=== PATIENT | female | born 1950 | race Caucasian/White ===

== ENCOUNTER 2020-04-24 06:39 | Inpatient (IN) ==
--- NOTE | 2020-04-10 11:13 | PAT Medication Instructions ---
Medication Instructions Date of Service April 10, 2020 Home Medications alendronate 70 mg PO WK atenolol 25 mg PO HS buspirone 5 mg PO BID PRN furosemide 20 mg PO DAILY PRN glucosamine HCl 1,500 mg PO DAILY meclizine 25 mg PO DAILY PRN multivitamin 1 tab PO DAILY oxybutynin chloride 5 mg PO BID rosuvastatin 10 mg PO HS Continue as directed alendronate 70 mg PO WK STOP taking 2 weeks before surgery If surgery is within 2 weeks, stop taking as soon as possible. glucosamine HCl 1,500 mg PO DAILY DO NOT take the morning of surgery furosemide 20 mg PO DAILY PRN multivitamin 1 tab PO DAILY oxybutynin chloride 5 mg PO BID Take morning of surgery With a small sip of water, OTHERWISE NOTHING TO EAT OR DRINK AFTER MIDNIGHT: buspirone 5 mg PO BID PRN (if needed) meclizine 25 mg PO DAILY PRN (if needed) Take evening before surgery atenolol 25 mg PO HS buspirone 5 mg PO BID PRN (if needed) furosemide 20 mg PO DAILY PRN (if needed) meclizine 25 mg PO DAILY PRN (if needed) oxybutynin chloride 5 mg PO BID rosuvastatin 10 mg PO HS Other Notes If you have any questions please call us at [phone] or [phone] or [phone] or [phone]
--- NOTE | 2020-04-10 11:32 | Anesthesiology Consultation ---
Date of Service April 10, 2020 Assessment & Plan (1) Encounter for pre-operative examination: COVID Status: As of 04/10 assessment, patient denies travel to endemic area, known exposure/sick contacts, or symptoms of COVID19. Patient made aware to social distance, wear a mask in public and avoid travel for 14 days prior to surgery. Preoperative COVID19 testing to be completed prior to surgery on 04/17 at [facility]. Chart Review Chart Review: Acceptable Risk for Surgery and Patient seen in Pre Admission Testing Teaching & Discussion Instructed NPO after midnight before surgery, except medications with 15 cc of water. Medication instructions provided according to the PAT guidelines. History Surgery Operation Date: 04/24/20 10:30 Proposed Procedures p Right Total Knee Arthroplasty - Niles Llamas MD Height/Weight Height: 5 ft 2 in Weight: 77.7 kg Allergies Allergy/AdvReac Type Severity Reaction Status Date / Time adhesive tape Allergy Mild Rash Verified 04/09/20 11:33 Medications Home Medications Medication Instructions Recorded Confirmed Last Taken alendronate 70 mg PO WK 04/09/20 04/09/20 Unknown atenolol 25 mg PO HS 04/09/20 04/09/20 Unknown buspirone 5 mg PO BID PRN 04/09/20 04/09/20 Unknown furosemide 20 mg PO DAILY PRN 04/09/20 04/09/20 Unknown glucosamine HCl 1,500 mg PO DAILY 04/09/20 04/09/20 Unknown meclizine 25 mg PO DAILY PRN 04/09/20 04/09/20 Unknown multivitamin 1 tab PO DAILY 04/09/20 04/09/20 Unknown oxybutynin chloride 5 mg PO BID 04/09/20 04/09/20 Unknown rosuvastatin 10 mg PO HS 04/09/20 04/09/20 Unknown Past Medical History Medical History Anxiety Hearing deficit RT Hx of migraines Hyperlipidemia Hypertension Muscle cramps at night Osteoarthritis Overactive bladder Exercise / Class Metabolic Activity III < 4 Walking/Shop/Light housework (Denies any chest pain, some mild BARRERA with 1 FOS, uses stair lift at home.) Past Family History Family History (Updated 04/09/20 @ 11:46 by Devora Lawton RN) Other No significant family history Past Surgical History Surgical History Family history of reaction to anesthesia MANY FAMILY MEMBERS N/V History of arthroscopy RT KNEE History of breast biopsy BENIGN History of laparoscopy "TUBAL" History of tonsillectomy and adenoidectomy History of tooth extraction Nausea and vomiting after administration of anesthetic agent Past Anesthesia History No Hx of Anesthesia Complications (other than PONV) and No Family Hx of Anesthesia Complications (other than PONV) History of PONV History of PONV and Hx of Motion Sickness (2/2 vertigo) Social History Smoking Status: Never smoker Do You Dip or Chew Tobacco: No Hx Alcohol Use: Yes alcohol intake frequency: holidays/special occasions only Hx Substance Use: No substance use type: does not use Review of Systems Pt denies any recent chest pain, shortness of breath, palpitations, cough, fever or URI. Physical Exam Vital Signs BP: 114/72 P: 70bpm SPO2: 96% RA T: R: 16 ENMT Mouth: no dental restorations, no chipped teeth and no loose teeth Thyromental Distance: > or= 3.5 Finger Breadths (3.5) Mallampati Class: I Neck normal visual inspection; neck extension not limited Respiratory normal respiratory effort Auscultation: lungs clear to auscultation bilaterally Cardiovascular Rate/Rhythm: regular rate and regular rhythm Heart Sounds: no murmur Vessels: no carotid bruit Extremities: + edema (trace nonpitting B/L, pt states this is baseline) Testing Laboratory Results 04/10/20 11:55 04/10/20 11:55 PT 10.9 Seconds (9.0-12.0) 04/10/20 11:55 INR 1.0 (0.9-1.1) 04/10/20 11:55 APTT 26.7 Seconds (21.0-31.0) 04/10/20 11:55 Hemoglobin A1c 5.4 % (4.5-5.6) 04/10/20 11:55 Urine Color Yellow 04/10/20 11:55 Urine Appearance Clear (Clear) 04/10/20 11:55 Urine pH 7.0 (4.5-7.5) 04/10/20 11:55 Ur Specific [place] 1.009 (1.000-1.030) 04/10/20 11:55 Urine Protein Negative (Negative) 04/10/20 11:55 Urine Glucose (UA) Negative (Negative) 04/10/20 11:55 Urine Ketones Negative (Negative) 04/10/20 11:55 Urine Nitrite Negative (Negative) 04/10/20 11:55 Ur Leukocyte Esterase Negative (Negative) 04/10/20 11:55 Blood Type O Positive 04/10/20 11:55 Antibody Screen NEGATIVE 04/10/20 11:55 Electrocardiogram Date: 04/10/20 Findings: + NSR @ (68bpm) Left axis deviation. Chest X-Ray Date: 04/10/20 Findings: + NAD
--- NOTE | 2020-04-10 12:23 | XRay Report ---
XR chest Pre-admission PA/Lat CLINICAL HISTORY: Preoperative chest COMPARISON STUDY: No previous studies for comparison. FINDINGS: The cardiac and mediastinal contours are normal. There is no evidence of focal pulmonary co nsolidation. There is no evidence of failure. No pleural effusions are visualized.[ IMPRESSION: No active disease in the chest. ACT 112: Negative or not required by law. Electronically signed by: Kunal Dao M.D. 04/10/2020 12:22 PM
[2020-04-10 13:00] LABS: Basophils # (auto) 0.06 K/uL (0-0.2); Eosinophils # (auto) 0.05 K/uL (0-0.5); Eosinophils % (auto) 0.8 %; Hematocrit (blood only) 42.4 % (37-47); Hemoglobin 13.9 g/dL (12.0-16.0); Immature Granulocytes # (auto) 0.01 K/uL (0.00-0.02); Immature Granulocytes % (auto) 0.2 %; Lymphocytes # (auto) 1.58 K/uL (1.2-3.4); Lymphocytes % (auto) 26.1 %; Mean Corpuscular Hemoglobin 32.6 pg (25-34); Mean Corpuscular Hgb Conc 32.8 g/dL (32-36); Mean Corpuscular Volume 99.3 fL (80-100); Mean Platelet Volume 12.2 fL (7.4-10.4); Monocytes # (auto) 0.45 K/uL (0.11-0.59); Monocytes % (auto) 7.4 %; Neutrophils # (auto) 3.91 K/uL (1.4-6.5); Neutrophils % (auto) 64.5 %; Platelet Count 207 K/uL (130-400); RDW Coefficient of Variation 12.6 % (11.5-14.5); RDW Standard Deviation 45.6 fL (36.4-46.3); Red Blood Count 4.27 M/uL (4.2-5.4); White Blood Count 6.06 K/uL (4.8-10.8)
[2020-04-10 13:08] LABS: Appearance Urine Clear (Clear); Bilirubin Urine Negative (Negative); Blood Urine Negative (Negative); Color Urine Yellow; Glucose Urine UA Negative (Negative); Ketones Urine Negative (Negative); Leukocyte Esterase Urine Negative (Negative); Nitrite Urine Negative (Negative); Protein Urine Negative (Negative); Specific Gravity Urine 1.009 (1.000-1.030); Urobilinogen Urine Negative (Negative)
[2020-04-10 13:09] LABS: Estimated Average Glucose 108 mg/dl; Hemoglobin A1C 5.4 % (4.5-5.6)
[2020-04-10 13:33] LABS: Partial Thromboplastin Time 26.7 Seconds (21.0-31.0); Prothrombin Time 10.9 Seconds (9.0-12.0)
[2020-04-10 13:41] LABS: Albumin Level 4.4 gm/dl (3.4-5.0); BUN Creatinine Ratio 24.5 (10-20); Creatinine Clr Calc Pharmacy 79.1 ml/min; Est GFR (African American) 104.6; Est GFR (Non-African American) 90.2; Potassium 4.5 mmol/L (3.5-5.1)
--- NOTE | 2020-04-10 14:51 | Electrocardiogram Report ---
Test Reason : Blood Pressure : / mmHG Vent. Rate : 068 BPM Atrial Rate : 068 BPM P-R Int : 188 ms QRS Dur : 084 ms QT Int : 400 ms P-R-T Axes : 070 -30 -04 degrees QTc Int : 425 ms Normal sinus rhythm Left axis deviation Abnormal ECG No previous ECGs available Confirmed by Cooper Soriano ([id number]) on 04/10/2020 2:50:27 PM Referred By: Niles Llamas Confirmed By:Cooper Soriano
--- NOTE | 2020-04-23 20:29 | History and Physical Report ---
DATE OF ADMISSION: 04/24/2020 CHIEF COMPLAINT: Chronic right knee pain. HISTORY OF PRESENT ILLNESS: This is a 70-year-old female patient of Dr. Llamas'grace complaining of chronic right knee pain, longstanding, now progressively getting worse. The patient has failed conservative treatment including intra-articular injections, topical creams, anti-inflammatories and the use of a home exercise program. The patient has increased pain with weightbearing activities and her pain does interfere with her activities of daily living. The patient has been diagnosed with end-stage osteoarthritis per clinical and radiographic exams in the right knee and wishes to proceed with right total knee arthroplasty. PAST MEDICAL HISTORY: Anxiety, osteoarthritis. SOCIAL HISTORY: Nonsmoker, nondrinker. FAMILY HISTORY: Noncontributory. REVIEW OF SYSTEMS: Chronic right knee pain and instability. Otherwise, denies any shortness of breath, chest pain, nausea, vomiting. MEDICATIONS: 1. Alendronate 70 mg as directed. 2. Amlodipine 10 mg daily. 3. Atenolol 25 mg daily. 4. buspirone 5 mg twice daily as needed. 5. Furosemide 20 mg daily as needed. 6. Meclizine 25 mg 3 times a day as needed. 7. Multivitamin daily. 8. Oxybutynin 5 mg 3 times daily. 9. Rosuvastatin 10 mg daily. ALLERGIES: No known drug allergies. PHYSICAL EXAMINATION: GENERAL: Well-developed, well-nourished 70-year-old female in no acute distress. She is alert and oriented x3 and pleasant. HEENT: Normocephalic, atraumatic. Extraocular motions are intact. Pupils are equal and reactive to light. HEART: Regular rate and rhythm, no murmurs. LUNGS: Clear. ABDOMEN: Soft, nontender, bowel sounds present. EXTREMITIES: Right knee reveals joint line tenderness with a moderate effusion. She has pain and crepitation with passive range of motion. She has limited range of motion. Neurologically and neurovascularly, she is intact in her right lower extremity. DIAGNOSES: Right knee end-stage osteoarthritis, anxiety, osteoarthritis. PLAN: The patient was advised of her diagnosis. Indications, risks, benefits, postoperative course have all been reviewed. The patient wished to proceed with a right total knee arthroplasty. Necessary consent forms, preoperative testing and clearances will be obtained. STAR
[~2020-04-24 06:39] MED LIST: ACETAMINOPHEN 500 MG TAB PO SCH; BUPIVACAINE 0.25% 30 ML VIAL ONE; BUPIVACAINE 0.5 % 5 MG/1 ML PF 10ML VIAL ONE; CEFAZOLIN 1000MG 1,000 MG/7.5 ML SYR IV SCH; CeleBREX 200 MG CAP PO SCH; FAMOTIDINE 20 MG TAB PO SCH; GABAPENTIN 300 MG CAP PO SCH; LR 15ML/HR IV SCH; LR 500ML BOLUS, THEN 15ML/HR IV SCH; METOCLOPRAMIDE HCL 10 MG TABLET PO SCH; ROPIVACAINE 0.5% HCL/PF 150 MG, BUPIVACAINE 0.5% MPF 30 ML, EPINEPHrine 30MG/30ML (OR U... INSTIL SCH; TRANEXAMIC ACID 1,000 MG **IV Intra-op IV SCH; TRANEXAMIC ACID 1,000 MG **IV Pre-op IV SCH; dexAMETHasone 4 MG TAB PO SCH
--- NOTE | 2020-04-24 07:03 | History & Physical Bridge Note ---
Date of Service April 24, 2020 History & Physical Bridge Note I have examined the patient, reviewed the History & Physical and in the interval since the performance of the History & Physical I have noted the following changes of clinical significance: no changes noted
[2020-04-24] MEDS ORDERED: ORTHO JOINT ANESTHETIC ONE (07:43)
[2020-04-24] MEDS ORDERED: BACITRACIN INJ 50,000 UNIT VIAL ONE (07:43)
[2020-04-24] MEDS ORDERED: MIDAZOLAM HCL 1 MG/ML 2ML VIAL ONE ×2 (07:51→09:25)
[2020-04-24] MEDS ORDERED: LIDOCAINE HCL 2% 2 ML VIAL/AMP(20MG/ML) INFIL ONE (07:51)
[2020-04-24] MEDS ORDERED: PROPOFOL IV EMULSION 10 MG/ML 20 ML VIAL IV ONE ×2 (07:51→09:46)
[2020-04-24] MEDS ORDERED: ePHEDrine sulfate 50 MG/ML AMP IV PRN (08:27)
[2020-04-24] MEDS ORDERED: ONDANSETRON INJ 2 MG/ML 2 ML VIAL IV PRN ×2 (08:27→11:47)
[2020-04-24] MEDS ORDERED: fentaNYL citrate 100 MCG/2 ML VIAL IV PRN (08:27)
[2020-04-24] MEDS ORDERED: ATROPINE SULFATE 0.1 MG/ML 10ML SYR IV PRN (08:27)
[2020-04-24] MEDS ORDERED: ePHEDrine sulfate 50 MG/ML SYR ONE (09:07)
--- NOTE | 2020-04-24 10:17 | Operative Report ---
Post Operative Report Pre & Post Diagnosis Operation Date: 04/24/20 08:50 Pre-Op Diagnosis: RIGHT KNEE OSTEOARTHRITIS Post-Op Diagnosis: RIGHT KNEE OSTEOARTHRITIS I identified the patient and participated in the time-out.: Yes Procedure Operation Date: 04/24/20 08:50 Actual Procedures p Right Total Knee Arthroplasty(Right) - Niles Llamas MD Surgeon Niles Llamas MD Health Assessment And Treatment Teacher Carlos HALLMAN Estimated Blood Loss 10 Findings Consistent with Post-Op Diagnosis Specimens Bone cuts Drains 2 Hemovac Anesthesia Type MAC Spinal Regional Complications none Disposition Accompanied Patient To Recovery: No Disposition: Recovery Room Indications 70 female with progressive osteoarthritis of the right knee failed conservative management. Patient has medial compartment and patellofemoral osteoarthritis [id number] medial compartment on weightbearing films with a varus knee. Description of Procedure Patient taken to the operating room placed supine on the operating table and anesthetized under spinal MAC regional anesthesia. Exam under anesthesia demonstrated good range of motion varus knee no instability. A pneumatic tourniquet was placed about the moderately obese thigh of the right lower extremity. The right lower extremity was prepped and draped in usual fashion. Leg was elevated exsanguinated with an Esmarch bandage and the pneumatic was raised to 350 mm mercury. An anterior incision was made across the right knee. The skin was incised longitudinally subcutaneous flaps were elevated and an incision was made through the medial retinaculum extending up into the mid third of the quadriceps tendon and extended down to the medial tibial tubercle. Intra-articular findings demonstrated medial compartment and patellofemoral osteoarthritis grade 4 trochlear groove grade 4 medial compartment [id number] medial compartment varus knee.. The knee was exposed by excising the infrap atellar fat pad, excising the meniscal remnants and anterior cruciate ligament . Any inflamed synovial tissue was resected. The fat pad over the anterior femur was resected for placement of the component in that area. The lateral synovial bands were release. Appropriate releases were performed to balance ligaments. The femur was exposed. The drill hole was made into the intramedullary canal the guide jessica placed and the distal resection guide set at a 5 degree valgus cut standard distal femoral cut. The distal femoral cutting block was applied. The distal femoral cut was made with the oscillating saw. The sizing guide was utilized drill holes were placed in 3 degrees of external rotation to match the epicondylar axis. Sizing guide used and femur sized for a right 9 narrow CR persona femoral component. The size 9 4-in-1 cutting block was placed. The anterior and posterior chamfer cuts were made. The knee was extended and a subperiosteal peel lateral release was performed around the patella. The patella width was measured and width was reproduced using freehand cut technique. The 32 x 8.5 symmetrical millimeter symmetrical patella was used. 3 drill holes are made for the pegs. The tibia was exposed. The external tibial cutting guide was positioned and the proximal cut was made with the oscillating saw. All osteophytes were resected. The lamina refrigeration service technician was used to assess ligamentous balance and the ligaments were balanced in extension and flexion. The tibia was reexposed and measured for a size E tibial component. This was externally rotated in line with the tibial tubercle and the fixation pins were drilled. The proximal tibia was fashioned with the drill and punch. The size 9 femoral trial was inserted. The trial MC inserts were used. The 11 mm insert gave balanced ligaments through full range of motion. The patella tracked centrally. the trials were removed. The orthomix anesthetic cocktail was injected per protocol. The knee was then copiously irrigated with pulsatile lavage antibiotic solution with bacitracin. The final components were cemented with Simplex cement. The final components were 9 narrow CR persona [employer] right femoral component, E tibial baseplate, 11 mm MC polyethylene, 32 x 8.5 mm symmetrical patella. While the cement cured with the knee in full extension the Betadine soak was used per protocol. After the cement cured, the knee joint was copiously irrigated with antibiotic solution with bacitracin. 2 drains were brought out laterally and connected to a Hemovac. The quadriceps tendon and medial retinaculum were closed with interrupted [id number] #1 Vicryl sutures. The knee was taken through a full range of motion and repair was secure. The subcutaneous tissues were closed with 2-0 Vicryl sutures and skin was closed with sammie. Sterile dressings were applied and the patient tolerated the procedure well. Carlos HALLMAN my physician fitter's assistant, assisted in soft tissue retraction instrument management leg positioning the closure and will participate in the postoperative care of the patient. I attest to the content of the Intraoperative Record and any orders documented therein. Any exceptions are noted below.
[2020-04-24] MEDS ORDERED: MAGNESIUM HYDROXIDE SUSP 30 ML UDC PO PRN (11:47)
[2020-04-24] MEDS ORDERED: bisacodyL 10 MG SUPP PR PRN (11:47)
[2020-04-24] MEDS ORDERED: NALOXONE HCL 0.4 MG/1 ML VIAL/CARP IV PRN (11:47)
--- NOTE | 2020-04-24 12:17 | XRay Report ---
XR knee RT 1 or 2V routine CLINICAL HISTORY: Postoperative evaluation. COMPARISON: None FINDINGS: Alignment of the total right knee arthroplasty is anatomic. There is no periprosthetic fra cture. There is no unexpected radiopaque foreign body. Drains and skin sammie are present. IMPRESSION: Expected findings following total right knee arthroplasty. ACT 112: Negative or not required by law. Electronically signed by: Jorge Alaniz M.D. 04/24/2020 12:16 PM
[2020-04-24] MEDS: SODIUM CHLORIDE 0.9% 1000ML 1,000 ML IV SCH (13:14)
[2020-04-24] MEDS: ACETAMINOPHEN 500 MG TAB PO SCH ×2 (13:15→21:52)
--- NOTE | 2020-04-24 13:19 | Consultation ---
Date of Consultation April 24, 2020 Assessment & Plan (1) Status post total knee replacement, right: S/P R TKA POD #[address] Llamas EBL 10ml; hemovac 30ml pt tolerated procedure well pain/wound management per Ortho Activity and therapy as directed by Ortho Encourage incentive spirometry Monitor H&H, preop 13.9/42.4 (2) Hypertension: blood pressure controlled continue atenolol and amlodipine, with parameters (3) Hyperlipidemia: continue statin (4) Anxiety: continue buspar, prn DVT Prophlyaxis: SCD/TEDS, ASA BID per ortho Disposition: per primary Follow up: PCP Bambi Olguin PA-C upon discharge Pt was seen and examined in collaboration with Dr. Roy, please see addendum Starting 04/25/2020 pt will be under the care of Dr. Barahona Thank you for this consultation. We will follow the patient with you during their hospital stay. You [facility] via pager @ [phone]. Supervising Physician Co-Signing Physician Notes HISTORY: Record reviewed. Patient interviewed and examined. Care coordinated with Mikayla Mendes PA-C; please refer to her documentation for complete history. Briefly, 70 YO F with history of hypertension and other problems as noted. Right TKA performed today. Doing well postoperatively. No chest pain, cough, SOB, nausea, vomiting. Pain well-controlled. EXAM: General- no distress Lungs- clear to auscultation; no respiratory distress Cardiovascular- RRR; no murmur; no gallop; no JVD; no pretibial edema Abdomen- + bowel sounds, soft, nontender Extremities- no cyanosis; no calf tenderness; SCD's applied Neuro- alert, oriented Skin- warm & dry DATA: 04/10/20 11:55 04/10/20 11:55 ASSESSMENT AND PLAN: S/P TKA Doing well postoperatively. HYPERTENSION Hemodynamically stable. Continue atenolol and amlodipine. Please refer to LEXX Mendes's documentation for discussion of other issues. History of Present Illness Reason for Consultation: Post op medical management Attending Physician: Niles Llamas MD History of Present Illness This is a 70-year-old female who has significant past medical history of HTN, HLD, panic attack, vertigo who presents for elective right total knee arthroplasty by Dr. Llamas. We have been consulted for medical management. Postoperatively she is doing well and has no complaints. She ate all of her lunch. She denies any fever, chills, sweats, lightheadedness, dizziness, chest pain, shortness breath, cough, nausea, vomiting, abdominal pain. She has urinated without difficulty. Last BM was 2 days prior to procedure. The only medication she took prior to procedure was 5 mg of BuSpar. She did not take her amlodipine or atenolol. At baseline her hypertension is controlled with amlodipine and atenolol. She does take as needed BuSpar for anxiety. She also elicits occasional attacks of vertigo which she uses meclizine as needed. Allergies Allergy/AdvReac Type Severity Reaction Status Date / Time adhesive tape Allergy Mild Rash Verified 04/24/20 06:56 Home Medications Home Medications Medication Instructions Recorded Confirmed Type alendronate 70 mg PO WK 04/09/20 04/24/20 History atenolol 25 mg PO HS 04/09/20 04/24/20 History buspirone 5 mg PO BID PRN 04/09/20 04/24/20 History furosemide 20 mg PO DAILY PRN 04/09/20 04/24/20 History glucosamine HCl 1,500 mg PO DAILY 04/09/20 04/24/20 History meclizine 25 mg PO DAILY PRN 04/09/20 04/24/20 History multivitamin 1 tab PO DAILY 04/09/20 04/24/20 History oxybutynin chloride 5 mg PO BID 04/09/20 04/24/20 History rosuvastatin 10 mg PO HS 04/09/20 04/24/20 History amlodipine 10 mg PO DAILY 04/24/20 04/24/20 History Patient History Medical History Anxiety Hearing deficit RT Hx of migraines Hyperlipidemia Hypertension Muscle cramps at night Osteoarthritis Overactive bladder Surgical History Family history of reaction to anesthesia MANY FAMILY MEMBERS N/V History of arthroscopy RT KNEE History of breast biopsy BENIGN History of laparoscopy "TUBAL" History of tonsillectomy and adenoidectomy History of tooth extraction Nausea and vomiting after administration of anesthetic agent Family History Mother Breast cancer Father COPD (chronic obstructive pulmonary disease) Social History (Updated 04/24/20 @ 13:40 by Mikayla Mendes PA-C) Preferred Language: Gabonese Lifter/Driver Required: No Beliefs That Will Affect Care: None Current Living Situation: Spouse Feels Safe at Home: Yes Safety Concerns: Feels Safe At This Time Smoking Status: Never smoker Do You Dip or Chew Tobacco: No ; Second Hand Exposure: No ; Tobacco Cessation Education Requested by Patient: No Hx Alcohol Use: No Hx Substance Use: No Review of Systems Review of Systems: All systems reviewed & are unremarkable except as noted in HPI & below Physical Exam Physical Exam: Constitutional: WD/WN, vitals as above, NAD, sitting up in bed, pleasant, conversing easily Head: Normocephalic, Atraumatic Eyes: PERRL, conjunctivae normal, anicteric sclerae ENMT: external ear and nose normal, oropharynx normal Neck: trachea midline, no thyromegaly normal visual inspection Respiratory: normal respiratory effort, lungs clear to auscultation, no wheeze, rales, rhonchi. Normal insp/exp effort, no accessory muscle use Cardiovascular: RRR, no murmur, no edema Vessels: no JVD or carotid bruit Chest: normal inspection of chest Abdomen: normal bowel sounds, soft, nontender, no hepatosplenomegaly Musculoskeletal: no cyanosis or clubbing, extremities motor strength 5/5, RTKA dressing CDI, hemovac in place, NVI distally Skin: no rashes, warm and dry normal turgor Neurologic: PERRL, EOMI, accommodation nl, no face palsy, no dysarthria CN's II-XI intact bilaterally and moves all extremities Psychiatric: A+Ox3, euthymic affect Lymphatic: no cervical or axillary lymphadenopathy : deferred Results & Data ([facility]) Vital Signs (Past 12 Hours) Vital Signs Temp Pulse Pulse Pulse Resp BP BP 04/24/20 13:16 36.4 C L 70 18 104/65 04/24/20 11:54 78 16 118/79 04/24/20 11:05 36.4 C L 71 13 105/61 04/24/20 10:55 78 15 105/63 04/24/20 10:46 36.3 C L 79 17 102/62 04/24/20 08:12 77 18 125/66 04/24/20 07:12 37 C 73 16 126/61 Pulse Ox 04/24/20 13:16 98 04/24/20 11:54 98 04/24/20 11:05 96 04/24/20 10:55 97 04/24/20 10:46 98 04/24/20 08:12 99 04/24/20 07:12 97 Laboratory Results Preoperative testing 03/2020 CBC: WBC 6.06, H&H 13.8 and 42.4, platelet 207 BMP: BUN 15, creatinine 0.63, glucose 90, potassium 4.5, A1c 5.4 Urinalysis unremarkable 04/17/2020 COVID-19 test negative Diagnostic Findings CXR: IMPRESSION: No active disease in the chest. Knee Xray: IMPRESSION: Expected findings following total right knee arthroplasty. Medications Administered Acetaminophen (Tylenol) 1,000 mg PO Q8 DANAE Stop: 05/24/20 13:59 Last Admin: 04/24/20 13:15 Dose: 1,000 mg Documented by: [id number] Sodium Chloride (Nss 1000ml) 1,000 mls @ 100 mls/hr IV .Q10H DANAE Stop: 04/25/20 06:00 Last Admin: 04/24/20 13:14 Dose: 100 mls/hr Documented by: [id number] Discontinued Medications Acetaminophen (Tylenol) 1,000 mg PO PREOP DANAE Stop: 04/24/20 18:00 Last Admin: 04/24/20 07:52 Dose: 1,000 mg Documented by: [id number] Bacitracin (Bacitracin) Confirm Administered Dose 50,000 units .ROUTE .STK-MED ONE Stop: 04/24/20 07:44 Last Admin: 04/24/20 09:17 Dose: 50,000 units Documented by: [id number] Celecoxib (Celebrex) 200 mg PO PREOP DANAE Stop: 04/24/20 18:00 Last Admin: 04/24/20 07:51 Dose: 200 mg Documented by: [id number] Dexamethasone (Decadron) 8 mg PO PREOP DANAE Stop: 04/24/20 18:00 Last Admin: 04/24/20 07:51 Dose: 8 mg Documented by: [id number] Famotidine (Pepcid) 20 mg PO PREOP DANAE Stop: 04/24/20 18:00 Last Admin: 04/24/20 07:53 Dose: 20 mg Documented by: [id number] Gabapentin (Neurontin) 300 mg PO PREOP DANAE Stop: 04/24/20 18:00 Last Admin: 04/24/20 07:53 Dose: 300 mg Documented by: [id number] Cefazolin Sodium (Ancef 1000mg) 1,000 mg in 7.5 mls @ 2.5 mls/min IV PREOP DANAE; Protocol Stop: 04/24/20 18:00 Last Admin: 04/24/20 08:41 Dose: 2.5 mls/min Documented by: [id number] Ropivacaine 150 mg/Bupivacaine HCl 30 ml/Epinephrine HCl 0.15 mg/Ketorolac Tromethamine 30 mg/Dexamethasone 4 mg/ Ketamine HCl 10 mg/ Clonidine HCl 100 mcg/ Sodium Chloride 93.35 mls @ 0 mls/hr INSTIL PREOP [facility] Stop: 04/24/20 06:01 Last Admin: 04/24/20 09:17 Dose: 93.35 mls/hr Documented by: [id number] Tranexamic Acid (Tranexamic Acid / 0.7% Nacl) 1,000 mg in 100 mls @ 600 mls/hr IV TODAY@0600 [facility] Stop: 04/24/20 18:00 Last Infusion: 04/24/20 08:38 Dose: 0 mls/hr Documented by: [id number] Admin: 04/24/20 08:28 Dose: 600 mls/hr Documented by: [id number] Tranexamic Acid (Tranexamic Acid / 0.7% Nacl) 1,000 mg in 100 mls @ 600 mls/hr IV TODAY@0600 [facility] Stop: 04/24/20 18:00 Last Infusion: 04/24/20 12:13 Dose: 0 mls/hr Documented by: [id number] Admin: 04/24/20 10:22 Dose: 600 mls/hr Documented by: [id number] Lactated Ringer's (Lr) 1,000 mls @ 15 mls/hr IV .Q24H [facility] Stop: 04/24/20 18:00 Last Infusion: 04/24/20 08:41 Dose: 0 mls/hr Documented by: [id number] Admin: 04/24/20 07:40 Dose: 15 mls/hr Documented by: [id number] Metoclopramide HCl (Reglan) 10 mg PO PREOP DANAE Stop: 04/24/20 18:00 Last Admin: 04/24/20 07:52 Dose: 10 mg Documented by: [id number] Miscellaneous (Ortho Joint Anesthetic) Confirm Administered Dose 1 ea .ROUTE .STK-MED ONE Stop: 04/24/20 07:44 Last Admin: 04/24/20 09:16 Dose: Not Given Documented by: [id number] ECG Rate (beats per minute): 68
[2020-04-24] MEDS ORDERED: MECLIZINE HCL 25 MG TAB PO PRN (13:59)
--- NOTE | 2020-04-24 16:58 | Anesthesiology Progress Note ---
Date of Service April 24, 2020 Anesthesia Post Procedure Vital Signs Vital Signs: Temp Pulse Pulse Pulse Resp BP BP 04/24/20 13:16 36.4 C L 70 18 104/65 04/24/20 12:19 16 99/64 L 04/24/20 11:54 78 16 118/79 04/24/20 11:05 36.4 C L 71 13 105/61 04/24/20 10:55 78 15 105/63 04/24/20 10:46 36.3 C L 79 17 102/62 04/24/20 08:12 77 18 125/66 04/24/20 07:12 37 C 73 16 126/61 Pulse Ox 04/24/20 13:16 98 04/24/20 12:19 98 04/24/20 11:54 98 04/24/20 11:05 96 04/24/20 10:55 97 04/24/20 10:46 98 04/24/20 08:12 99 04/24/20 07:12 97 Transfer of Care Handoff Completed per policy Notes Mental Status: alert / awake / arousable and participated in evaluation Patient Amnestic to Procedure: Yes Nausea / Vomiting: adequately controlled Pain: adequately controlled Airway Patency, RR, SpO2: stable & adequate BP & HR: stable & adequate Hydration State: stable & adequate Neuraxial Anesthesia: was administered and sensory block is resolving Anesthetic Complications: no major complications apparent and Pt Satisfied with anesthetic care
[2020-04-24] MEDS: CEFAZOLIN 2000MG 2,000 MG/15 ML SYR IV SCH (19:06)
[2020-04-24] MEDS: FERROUS GLUCONATE 324 MG TAB PO SCH (19:06)
[2020-04-24] MEDS: SENNA 8.6 MG TAB PO SCH (19:59)
[2020-04-24] MEDS: ASPIRIN 81 MG ECTAB PO SCH (19:59)
[2020-04-24] MEDS: ATENOLOL 25 MG TABLET PO SCH (19:59)
[2020-04-24] MEDS: DOCUSATE SODIUM 100 MG CAP PO SCH (19:59)
[2020-04-24] MEDS: ROSUVASTATIN CALCIUM 10 MG TAB PO SCH (19:59)
[2020-04-24] MEDS: OXYBUTYNIN CHLORIDE 5 MG TAB PO SCH (20:00)
[2020-04-24] MEDS: AMLODIPINE BESYLATE 5 MG TAB PO SCH (21:55)
[2020-04-25] MEDS: CEFAZOLIN 2000MG 2,000 MG/15 ML SYR IV SCH (00:02)
[2020-04-25] MEDS: SODIUM CHLORIDE 0.9% 1000ML 1,000 ML IV SCH (00:28)
[2020-04-25] MEDS: ACETAMINOPHEN 500 MG TAB PO SCH ×3 (05:36→21:41)
[2020-04-25 05:45] LABS: Hematocrit (blood only) 34.8 % (37-47); Hemoglobin 11.7 g/dL (12.0-16.0); Mean Corpuscular Hemoglobin 32.1 pg (25-34); Mean Corpuscular Hgb Conc 33.6 g/dL (32-36); Mean Corpuscular Volume 95.6 fL (80-100); Mean Platelet Volume 11.4 fL (7.4-10.4); Platelet Count 167 K/uL (130-400); RDW Coefficient of Variation 12.5 % (11.5-14.5); RDW Standard Deviation 43.7 fL (36.4-46.3); Red Blood Count 3.64 M/uL (4.2-5.4); White Blood Count 13.93 K/uL (4.8-10.8)
[2020-04-25 06:18] LABS: BUN Creatinine Ratio 25.7 (10-20); Calcium 8.7 mg/dl (8.5-10.1); Creatinine Clr Calc Pharmacy 74.8 ml/min; Est GFR (Non-African American) 88.9; Potassium 4.2 mmol/L (3.5-5.1)
--- NOTE | 2020-04-25 07:32 | Anesthesiology Progress Note ---
Date of Service April 25, 2020 Anesthesia Post Procedure Vital Signs Vital Signs: Temp Pulse Pulse Pulse Resp BP BP 04/25/20 07:00 36.8 C 61 16 100/64 04/25/20 03:11 36.6 C 57 L 18 99/61 L 04/24/20 23:02 36.7 C 56 L 14 104/64 04/24/20 21:54 58 L 107/64 04/24/20 19:00 79 20 131/80 04/24/20 13:16 36.4 C L 70 18 104/65 04/24/20 12:19 16 99/64 L 04/24/20 11:54 78 16 118/79 04/24/20 11:05 36.4 C L 71 13 105/61 04/24/20 10:55 78 15 105/63 04/24/20 10:46 36.3 C L 79 17 102/62 04/24/20 08:12 77 18 125/66 Pulse Ox 04/25/20 07:00 97 04/25/20 03:11 98 04/24/20 23:02 94 04/24/20 21:54 04/24/20 19:00 99 04/24/20 13:16 98 04/24/20 12:19 98 04/24/20 11:54 98 04/24/20 11:05 96 04/24/20 10:55 97 04/24/20 10:46 98 04/24/20 08:12 99 Transfer of Care Handoff Completed per policy Notes Mental Status: alert / awake / arousable Nausea / Vomiting: adequately controlled Pain: adequately controlled Airway Patency, RR, SpO2: stable & adequate BP & HR: stable & adequate Hydration State: stable & adequate Neuraxial Anesthesia: was administered and sensory block resolved Anesthetic Complications: no major complications apparent and Pt Satisfied with anesthetic care
[2020-04-25] MEDS ORDERED: AMLODIPINE BESYLATE 5 MG TAB PO SCH (09:00)
[2020-04-25] MEDS: FERROUS GLUCONATE 324 MG TAB PO SCH ×2 (09:00→17:22)
[2020-04-25] MEDS: ASPIRIN 81 MG ECTAB PO SCH ×2 (09:16→21:21)
[2020-04-25] MEDS: DOCUSATE SODIUM 100 MG CAP PO SCH ×2 (09:17→21:21)
[2020-04-25] MEDS: OXYBUTYNIN CHLORIDE 5 MG TAB PO SCH ×2 (09:17→21:21)
[2020-04-25] MEDS: MULTIVITAMIN TAB PO SCH (09:17)
[2020-04-25] MEDS: OXYCODONE HCL IR 5 MG TAB (IMMEDIATE RELEASE) PO PRN (09:18)
--- NOTE | 2020-04-25 10:47 | Orthopedic Progress Note ---
Date of Service April 25, 2020 Assessment & Plan (1) Status post total knee replacement, right: POD #1, Right TKA PT/ OT DVT proph- ASA D/C planning- Home w OPPT As per medicine. AM labs stable. Admission and Anticipated Discharge Date Admission Date: April 24, 2020 Subjective POD #1, doing well. Denies SOB, CP, N/V. Pain controlled well. Wishes OPPT on D/C. Physical Exam Physical Exam: Right knee dressings c/d/i, no drainage. Toes/ ankle mobile. No calf tenderness. N/V+ A&Ox3. Results & Data ([facility]) Vital Signs (Past 12 Hours) Vital Signs Temp Pulse Resp BP Pulse Ox 04/25/20 07:00 36.8 C 61 16 100/64 97 04/25/20 03:11 36.6 C 57 L 18 99/61 L 98 04/24/20 23:02 36.7 C 56 L 14 104/64 94
--- NOTE | 2020-04-25 12:09 | Hospitalist Progress Note ---
Date of Service April 25, 2020 Assessment & Plan (1) Status post total knee replacement, right: -S/P R TKA on 04/24/[address] Llamas -management of hemovac as per othopedics team -hemoglobin on 04/25/2020 on 11.7 is reasonably okay given the surgery and wound vac -patient reports right knee discomfort is minimal. Post-operative leukocytosis -increased WBC on 04/25/2020 labs, however no fevers, monitor WBC (2) Hypertension: continue atenolol and amlodipine (3) Hyperlipidemia: continue statin (4) Anxiety: continue buspar, prn DVT Prophlyaxis: SCD/TEDS, ASA BID per ortho Follow up: PCP Bambi Olguin PA-C upon discharge Admission and Anticipated Discharge Date Admission Date: April 24, 2020 Subjective -S/P R TKA on 04/24/[address] Llamas -management of hemovac as per othopedics team -patient reports right knee discomfort is minimal. ambulating, on room air, no shortness of breath, no chest pain, no palpitations, no abdomen pain. no vomiting. no nausea Review of Systems Review of Systems: All systems reviewed & are unremarkable except as noted in Subjective Physical Exam Constitutional: comfortable Eyes: PERRL, conjunctivae normal, anicteric sclerae EOM intact bilaterally ENMT: external ear and nose normal, oropharynx normal Neck: trachea midline, no thyromegaly normal visual inspection Respiratory: normal respiratory effort, lungs clear to auscultation Cardiovascular: Rate/Rhythm: regular rate Gastrointestinal (Abdomen): normal bowel sounds, soft, nontender, no hepatospl enomegaly Musculoskeletal: Head/Neck/Chest: normocephalic and head atraumatic right knee wound vac Neurologic: PERRL, EOMI, accommodation nl, no face palsy, no dysarthria Psychiatric: A+Ox3, euthymic affect Results & Data Results & Data ([facility]) Vital Signs (Past 12 Hours) Vital Signs Temp Pulse Resp BP BP Pulse Ox 04/25/20 11:21 36.3 C L 67 16 106/68 97 04/25/20 07:00 36.8 C 61 16 100/64 97 04/25/20 03:11 36.6 C 57 L 18 99/61 L 98
[2020-04-25] MEDS: ROSUVASTATIN CALCIUM 10 MG TAB PO SCH (21:21)
[2020-04-25] MEDS: SENNA 8.6 MG TAB PO SCH (21:21)
[2020-04-25] MEDS: ATENOLOL 25 MG TABLET PO SCH (21:40)
[2020-04-25] MEDS: AMLODIPINE BESYLATE 5 MG TAB PO SCH (21:41)
[2020-04-26] MEDS ORDERED: SODIUM CHLORIDE 0.9% 500 ML IV ONE (04:13)
[2020-04-26] MEDS ORDERED: SODIUM CHLORIDE 0.9% 500 ML IV SCH (04:15)
[2020-04-26 05:42] LABS: Basophils # (auto) 0.02 K/uL (0-0.2); Basophils % (auto) 0.2 %; Eosinophils # (auto) 0.02 K/uL (0-0.5); Eosinophils % (auto) 0.2 %; Hematocrit (blood only) 35.6 % (37-47); Hemoglobin 11.5 g/dL (12.0-16.0); Immature Granulocytes # (auto) 0.02 K/uL (0.00-0.02); Immature Granulocytes % (auto) 0.2 %; Lymphocytes # (auto) 1.26 K/uL (1.2-3.4); Lymphocytes % (auto) 12.7 %; Mean Corpuscular Hemoglobin 32.1 pg (25-34); Mean Corpuscular Hgb Conc 32.3 g/dL (32-36); Mean Corpuscular Volume 99.4 fL (80-100); Mean Platelet Volume 11.5 fL (7.4-10.4); Monocytes # (auto) 0.85 K/uL (0.11-0.59); Monocytes % (auto) 8.6 %; Neutrophils # (auto) 7.76 K/uL (1.4-6.5); Neutrophils % (auto) 78.1 %; Platelet Count 163 K/uL (130-400); RDW Coefficient of Variation 12.9 % (11.5-14.5); RDW Standard Deviation 46.6 fL (36.4-46.3); Red Blood Count 3.58 M/uL (4.2-5.4); White Blood Count 9.93 K/uL (4.8-10.8)
[2020-04-26] MEDS: ACETAMINOPHEN 500 MG TAB PO SCH (05:42)
[2020-04-26 06:13] LABS: BUN Creatinine Ratio 32.3 (10-20); Calcium 8.3 mg/dl (8.5-10.1); Creatinine Clr Calc Pharmacy 72.6 ml/min; Magnesium 1.9 mg/dl (1.8-2.4); Potassium 4.1 mmol/L (3.5-5.1)
[2020-04-26] MEDS ORDERED: MAGNESIUM SULFATE / D5W 1 GM/100 ML BAG IV ONE (07:30)
--- NOTE | 2020-04-26 08:18 | Hospitalist Progress Note ---
Date of Service April 26, 2020 Assessment & Plan (1) Status post total knee replacement, right: -S/P R TKA on 04/24/[address] Llamas -management of hemovac post-op was performed by orthopedics team -hemoglobin on 04/25/2020 on 11.7 is reasonably okay given the surgery and wound vac use -wound vac was removed on 04/25/2020 -right knee in dressing -Hgb on 04/26/2020 is stable Post-operative leukocytosis -increased WBC on 04/25/2020 labs, however no fevers -WBC normalized on 04/26/2020 (2) Hypertension: -continue atenolol 25 mg qhs -04/26/2020 patient with low normal blood pressures on this hospital stay and then had episode of dizziness and low blood pressure after using bathroom around 3 AM. advised to patient to cut the 10 mg qhs dosing amlodipine off from home medications completely versus taking only 5 mg every night. patient should follow up further with primary care doctor for assistant terminal manager blood pressure checks currently normotensive. no lightheadedness. no dizziness. no headache. no abdominal pain. no nausea. no vomiting. no chest pain. no shortness of breath. no palpitations -hospitalist have held further amlodipine (3) Hyperlipidemia: continue statin (4) Anxiety: continue buspar, prn DVT Prophlyaxis: SCD/TEDS, ASA BID per ortho Follow up: PCP Bambi Olguin PA-C upon discharge Admission and Anticipated Discharge Date Admission Date: April 24, 2020 Subjective patient with low normal blood pressures on this hospital stay and then had episode of dizziness and low blood pressure after using bathroom around 3 AM. advised to patient to cut the 10 mg qhs dosing amlodipine off from home medications completely versus taking only 5 mg every night. patient should follow up further with primary care doctor for assistant terminal manager blood pressure checks currently normotensive. no lightheadedness. no dizziness. no headache. no abdominal pain. no nausea. no vomiting. no chest pain. no shortness of breath. no palpitations Review of Systems Review of Systems: All systems reviewed & are unremarkable except as noted in Subjective Physical Exam Constitutional: comfortable Eyes: PERRL, conjunctivae normal, anicteric sclerae EOM intact bilaterally ENMT: external ear and nose normal, oropharynx normal Neck: trachea midline, no thyromegaly normal visual inspection Respiratory: normal respiratory effort, lungs clear to auscultation Cardiovascular: Rate/Rhythm: regular rate Gastrointestinal (Abdomen): normal bowel sounds, soft, nontender, no hepatosplenomegaly Musculoskeletal: Head/Neck/Chest: normocephalic and head atraumatic right knee in dressing Neurologic: PERRL, EOMI, accommodation nl, no face palsy, no dysarthria Psychiatric: A+Ox3, euthymic affect Results & Data Results & Data ([facility]) Vital Signs (Past 12 Hours) Vital Signs Temp Pulse Pulse Pulse Resp BP BP 04/26/20 06:59 36.8 C 67 16 97/62 L 04/26/20 05:45 36.5 C 70 16 102/61 04/26/20 03:33 60 16 108/70 04/26/20 03:30 59 L 16 77/39 L 04/25/20 23:22 103/63 04/25/20 23:17 36.7 C 63 16 100/59 L 04/25/20 21:34 66 66 18 114/64 Pulse Ox 04/26/20 06:59 99 04/26/20 05:45 96 04/26/20 03:33 93 04/26/20 03:30 93 04/25/20 23:22 04/25/20 23:17 97 04/25/20 21:34 97
[2020-04-26] MEDS: FERROUS GLUCONATE 324 MG TAB PO SCH ×2 (08:26→17:58)
[2020-04-26] MEDS: MULTIVITAMIN TAB PO SCH (08:27)
[2020-04-26] MEDS: ASPIRIN 81 MG ECTAB PO SCH ×2 (08:27→21:44)
[2020-04-26] MEDS: OXYBUTYNIN CHLORIDE 5 MG TAB PO SCH ×2 (08:27→21:43)
[2020-04-26] MEDS: DOCUSATE SODIUM 100 MG CAP PO SCH ×2 (08:28→20:23)
--- NOTE | 2020-04-26 08:35 | Orthopedic Progress Note ---
Date of Service April 26, 2020 Assessment & Plan (1) Status post total knee replacement, right: POD #2, Right TKA Syncopal episode-patient was seen by Dr. Barahona this morning. Continue present physical therapy protocols. We will see how she does and how her blood pressures respond. PT/ OT DVT proph- ASA D/C planning- Home w OPPT if blood pressures remaining stable. As per medicine [facility] and Anticipated Discharge Date Admission Date: April 24, 2020 Subjective Postop day 2 status post right total knee arthroplasty. Patient feeling fine this morning. She apparently had a syncopal episode last night when she had gotten up to use the restroom at 3 AM. She was seen by the medicine service and had been given some fluids. She has not had any problems since then. Blood pressure has been running on the low side. This morning was 97/62 with pulse 67 respirations 16 and afebrile. Pain is controlled. Denies any shortness of breath, chest pain, lightheadedness. Physical Exam Physical Exam: Prevena dressing is clean, dry, intact. Calves are soft nontender. Neurovascular intact. Toes are mobile. Results & Data ([facility]) Vital Signs (Past 12 Hours) Vital Signs Temp Pulse Pulse Pulse Resp BP BP 04/26/20 06:59 36.8 C 67 16 97/62 L 04/26/20 05:45 36.5 C 70 16 102/61 04/26/20 03:33 60 16 108/70 04/26/20 03:30 59 L 16 77/39 L 04/25/20 23:22 103/63 04/25/20 23:17 36.7 C 63 16 100/59 L 04/25/20 21:34 66 66 18 114/64 Pulse Ox 04/26/20 06:59 99 04/26/20 05:45 96 04/26/20 03:33 93 04/26/20 03:30 93 04/25/20 23:22 04/25/20 23:17 97 04/25/20 21:34 97 Laboratory Results Laboratory Results WBC 9.93 K/uL (4.8-10.8) 04/26/20 05:31 RBC 3.58 M/uL (4.2-5.4) L 04/26/20 05:31 Hgb 11.5 g/dL (12.0-16.0) L 04/26/20 05:31 Hct 35.6 % (37-47) L 04/26/20 05:31 MCV 99.4 fL (80-100) 04/26/20 05:31 MCH 32.1 pg (25-34) 04/26/20 05:31 MCHC 32.3 g/dL (32-36) 04/26/20 05:31 RDW Std Deviation 46.6 fL (36.4-46.3) H 04/26/20 05:31 RDW Coeff of Yana 12.9 % (11.5-14.5) 04/26/20 05:31 Plt Count 163 K/uL (130-400) 04/26/20 05:31 MPV 11.5 fL (7.4-10.4) H 04/26/20 05:31 Immature Gran % (Auto) 0.2 % 04/26/20 05:31 Neut % (Auto) 78.1 % 04/26/20 05:31 Lymph % (Auto) 12.7 % 04/26/20 05:31 [place] % (Auto) 8.6 % 04/26/20 05:31 Eos % (Auto) 0.2 % 04/26/20 05:31 Baso % (Auto) 0.2 % 04/26/20 05:31 Neut # (Auto) 7.76 K/uL (1.4-6.5) H 04/26/20 05:31 Lymph # (Auto) 1.26 K/uL (1.2-3.4) 04/26/20 05:31 [place] # (Auto) 0.85 K/uL (0.11-0.59) H 04/26/20 05:31 Eos # (Auto) 0.02 K/uL (0-0.5) 04/26/20 05:31 Baso # (Auto) 0.02 K/uL (0-0.2) 04/26/20 05:31 Immature Gran # (Auto) 0.02 K/uL (0.00-0.02) 04/26/20 05:31 PT 10.9 Seconds (9.0-12.0) 04/10/20 11:55 INR 1.0 (0.9-1.1) 04/10/20 11:55 APTT 26.7 Seconds (21.0-31.0) 04/10/20 11:55 PTT Ratio 1.0 04/10/20 11:55 Sodium 146 mmol/L (136-145) H 04/26/20 05:31 Potassium 4.1 mmol/L (3.5-5.1) 04/26/20 05:31 Chloride 115 mmol/L (98-107) H 04/26/20 05:31 Carbon Dioxide 27 mmol/L (21-32) 04/26/20 05:31 Anion Gap 4.0 (3-11) 04/26/20 05:31 BUN 22 mg/dl (7-18) H 04/26/20 05:31 Creatinine 0.68 mg/dl (0.6-1.2) 04/26/20 05:31 Est Cr Clr Drug Dosing 72.6 ml/min 04/26/20 05:31 Est GFR ( Amer) 102.0 04/26/20 05:31 Est GFR (Non-Af Amer) 88.0 04/26/20 05:31 BUN/Creatinine Ratio 32.3 (-20) H 04/26/20 05:31 Glucose 89 mg/dl (70-99) 04/26/20 05:31 Estimat Average Glucose 108 mg/dl 04/10/20 11:55 Hemoglobin A1c 5.4 % (4.5-5.6) 04/10/20 11:55 Calcium 8.3 mg/dl (8.5-10.1) L 04/26/20 05:31 Magnesium 1.9 mg/dl (1.8-2.4) 04/26/20 05:31 Albumin 4.4 gm/dl (3.4-5.0) 04/10/20 11:55 Urine Color Yellow 04/10/20 11:55 Urine Appearance Clear (Clear) 04/10/20 11:55 Urine pH 7.0 (4.5-7.5) 04/10/20 11:55 Ur Specific [place] 1.009 (1.000-1.030) 04/10/20 11:55 Urine Protein Negative (Negative) 04/10/20 11:55 Urine Glucose (UA) Negative (Negative) 04/10/20 11:55 Urine Ketones Negative (Negative) 04/10/20 11:55 Urine Blood Negative (Negative) 04/10/20 11:55 Urine Nitrite Negative (Negative) 04/10/20 11:55 Urine Bilirubin Negative (Negative) 04/10/20 11:55 Urine Urobilinogen Negative (Negative) 04/10/20 11:55 Ur Leukocyte Esterase Negative (Negative) 04/10/20 11:55 Blood Type O Positive 04/10/20 11:55 Antibody Screen NEGATIVE 04/10/20 11:55
[2020-04-26] MEDS: ACETAMINOPHEN 325 MG TAB PO SCH ×2 (14:17→21:44)
[2020-04-26] MEDS: SENNA 8.6 MG TAB PO SCH (20:24)
[2020-04-26] MEDS: OXYCODONE HCL IR 5 MG TAB (IMMEDIATE RELEASE) PO PRN (20:32)
[2020-04-26] MEDS: ATENOLOL 25 MG TABLET PO SCH (21:43)
[2020-04-26] MEDS: ROSUVASTATIN CALCIUM 10 MG TAB PO SCH (21:43)
[2020-04-27] MEDS: ACETAMINOPHEN 325 MG TAB PO SCH ×2 (06:08→13:46)
--- NOTE | 2020-04-27 07:47 | Orthopedic Progress Note ---
Date of Service April 27, 2020 Assessment & Plan (1) Status post total knee replacement, right: POD #3, Right TKA Blood pressure improved. Was feeling better this morning did have an episode of mild light headedness going to bathroom. Will see how she does with PT. PT/ OT DVT proph- ASA D/C planning- Home w OPPT if does well with PT. As per medicine -appreciate input from [place] Hospitalist Admission and Anticipated Discharge Date Admission Date: April 24, 2020 Subjective Postop day 3 status post right total knee arthroplasty. Patient feeling fine this morning. She was given some fluids yesterday and BP meds adjusted. BP today better. She has not had any problems since then, however did have mild light headedness going to bathroom. Pain is controlled. Denies any shortness of breath, chest pain, n/v/d. Review of Systems Review of Systems: All systems reviewed & are unremarkable except as noted in HPI & below Physical Exam Physical Exam: Right knee Prevena is c/d/i, suctioning. Dressing to hemovac site c/d/i. No calf tenderness, toes mobile. Good dorsiflexion. Distally n/v status and sensation intact. Constitutional: well developed and well nourished; no acute distress Results & Data ([facility]) Vital Signs (Past 12 Hours) Vital Signs Temp Pulse Pulse Resp BP Pulse Ox 04/27/20 06:06 36.8 C 71 20 114/70 97 04/26/20 22:57 36.8 C 67 16 104/60 96 04/26/20 21:37 67 103/63 96
--- NOTE | 2020-04-27 08:15 | Hospitalist Progress Note ---
Date of Service April 27, 2020 Assessment & Plan (1) Status post total knee replacement, right: -S/P R TKA on 04/24/[address] Llamas -management of hemovac post-op was performed by orthopedics team -hemoglobin on 04/25/2020 on 11.7 is reasonably okay given the surgery and wound vac use -wound vac was removed on 04/25/2020 -right knee in dressing -Hgb on 04/26/2020 is stable Post-operative leukocytosis -increased WBC on 04/25/2020 labs, however no fevers -WBC normalized on 04/26/2020 (2) Hypertension: -well controlled -04/26/2020 patient with low normal blood pressures on this hospital stay and then had episode of dizziness and low blood pressure after using bathroom around 3 AM. advised to patient to cut the 10 mg qhs dosing amlodipine off from home medications completely versus taking only 5 mg every night. patient should follow up further with primary care doctor for buttermaker continuous churn blood pressure checks currently normotensive. no lightheadedness. no dizziness. no headache. no abdominal pain. no nausea. no vomiting. no chest pain. no shortness of breath. no palpitations; hospitalist have held further amlodipine 04/27/2020: patient again reports an episode around similar time at 3 AM when she was in the bathroom and felt symptoms. This time not lightheaded but feeling sweaty after bearing down on toilet. no chest pain. no palpitations. no vomiting. no dizziness. no headache.; hospitalist to stop further atenolol -advised to patient to cut the 10 mg qhs dosing amlodipine and atenolol 25 mg qhs off from home medications completely because of episodes of lightheadedness in the hospital and episodic low blood pressure. patient should follow up further with primary care doctor for care home blood pressure checks (3) Hyperlipidemia: continue statin (4) Anxiety: continue buspar, prn DVT Prophlyaxis: SCD/TEDS, ASA BID per ortho Follow up: PCP Bambi Olguin PA-C upon discharge Admission and Anticipated Discharge Date Admission Date: April 24, 2020 Subjective 04/27/2020: patient again reports an episode around similar time at 3 AM when she was in the bathroom and felt symptoms. This time not lightheaded but feeling sweaty after bearing down on toilet. no chest pain. no palpitations. no vomiting. no dizziness. no headache. -advised to patient to cut the 10 mg qhs dosing amlodipine and atenolol 25 mg qhs off from home medications completely because of episodes of lightheadedness in the hospital and episodic low blood pressure. patient should follow up further with primary care doctor for buttermaker continuous churn blood pressure checks Review of Systems Review of Systems: All systems reviewed & are unremarkable except as noted in Subjective Physical Exam Constitutional: comfortable Eyes: PERRL, conjunctivae normal, anicteric sclerae EOM intact bilaterally ENMT: external ear and nose normal, oropharynx normal Neck: trachea midline, no thyromegaly normal visual inspection Respiratory: normal respiratory effort, lungs clear to auscultation Cardiovascular: Rate/Rhythm: regular rate Gastrointestinal (Abdomen): normal bowel sounds, soft, nontender, no hepatosplenomegaly Musculoskeletal: Head/Neck/Chest: normocephalic and head atraumatic Neurologic: PERRL, EOMI, accommodation nl, no face palsy, no dysarthria Psychiatric: A+Ox3, euthymic affect Results & Data Results & Data ([facility]) Vital Signs (Past 12 Hours) Vital Signs Temp Pulse Pulse Resp BP Pulse Ox 04/27/20 06:06 36.8 C 71 20 114/70 97 04/26/20 22:57 36.8 C 67 16 104/60 96 04/26/20 21:37 67 103/63 96
[2020-04-27] MEDS: FERROUS GLUCONATE 324 MG TAB PO SCH ×2 (08:41→16:28)
[2020-04-27] MEDS: DOCUSATE SODIUM 100 MG CAP PO SCH (08:42)
[2020-04-27] MEDS: OXYBUTYNIN CHLORIDE 5 MG TAB PO SCH (08:42)
[2020-04-27] MEDS: MULTIVITAMIN TAB PO SCH (08:43)
[2020-04-27] MEDS: ASPIRIN 81 MG ECTAB PO SCH (08:43)
[2020-04-27] MEDS ORDERED: SODIUM CHLORIDE 0.9% 1000ML 500 ML IV ONE (14:21)
[2020-04-27] MEDS ORDERED: MIDODRINE HCL 2.5 MG TAB PO ONE (14:22)
[2020-04-27] MEDS ORDERED: MIDODRINE HCL 2.5 MG TAB PO SCH (17:00)
--- NOTE | 2020-04-29 19:52 | Discharge Summary (DS) ---
DISCHARGE DIAGNOSIS: Degenerative joint disease, right knee. SECONDARY DIAGNOSES: Hypertension, hyperlipidemia, anxiety. CONSULTS: Mikayla Mendes PA-C/Jesse Roy MD. COMPLICATIONS: None. PROCEDURES: Right total knee arthroplasty performed by Dr. Llamas on 04/24/2020. BRIEF HISTORY: As dictated in the history and physical. HOSPITAL SUMMARY: The patient was admitted on the above-noted date and had the above-noted surgery performed, which she tolerated well. Postoperatively, [facility] was consulted for medical management during her stay. On her first postoperative day, she was doing well and had no complaints of shortness of breath, chest pain or nausea or vomiting. Pain was controlled and she was planning for outpatient PT upon discharge. Vital signs were stable and she was afebrile. Right knee dressings were clean, dry and intact. Toes and ankle were mobile. No calf tenderness. Neurovascularly intact and she was started on PT and OT protocols, continued on DVT prophylaxis and pain management. By her second postoperative day when seen on that morning, she stated that she had a syncopal episode about 3:00 a.m. She was returned to her bed and was noted that her blood pressures were low at 77/39, pulse of 59, respirations were 16. She was seen by the medicine service and fluids were given and by that morning, she was feeling fine. She states that she has not had any problems since that time, blood pressure had been running on the low side. The 7:00 blood pressure was 97/62, pulse 67, respirations 16. Pain was controlled and she denied any shortness of breath, chest pain or lightheadedness at that time. Prevena dressing was intact. Calves were soft, nontender, neurovascularly intact. Toes were mobile. She was seen by medicine service that morning and plans were to continue her physical therapy and follow her blood pressures. Dr. Barahona who had seen her was making recommendations considering her amlodipine for plans for her discharge. She was then seen later around lunchtime and stated that she was up with physical therapy earlier in the morning and they ambulated her a bit in the room. She had a small amount of lightheadedness and sat down in the bed. They finished her bedside exercises and planned to ambulate her that afternoon. Plans were to keep her another night to follow her blood pressures and see how her lightheadedness was doing and following Dr. Barahona's recommendations at discharge for her amlodipine. By her third postoperative day, she was feeling fine that morning. She was given some fluids yesterday and BP meds adjusted. BP was better at 114/70. She had some mild lightheadedness going to the bathroom. Pain was controlled. She denied any shortness of breath, chest pain or nausea and vomiting. The Prevena was intact and functioning well. Calves remained nontender. Toes were mobile. She had good dorsiflexion and plantarflexion. Distal neuro was intact. She was continued on her PT and OT protocols. Dr. Barahona saw the patient on the as well and noted her orthostatic hypotension. Further fluids were given and plans to start a 5-day trial of midodrine 2.5 mg 3 times a day, which the prescription was sent to her preferred pharmacy. It was reinforced to avoid her amlodipine and atenolol at this time and follow up with her primary care physician. She was otherwise remaining stable and it was felt she could be discharged to home on 04/27/2020. For further review, please see chart. LABORATORY AND X-RAY DATA: As per chart. DISCHARGE INSTRUCTIONS: The patient was discharged home in satisfactory condition on 04/27/2020. DIET: Regular. ACTIVITY: Weightbearing as tolerated on the right lower extremity with walker. Follow TK instruction sheets and special care instructions as noted. Follow up with Dr. Llamas in 2 weeks. The patient to call for appointment if one has not been made for you. Follow up with her primary care physician in 7-10 days to discuss blood pressure medications and a blood pressure check. Follow additional instructions provided by Dr. Barahona concerning her amlodipine and atenolol. DISCHARGE MEDICATIONS: Acetaminophen 1000 mg p.o. q.8 hours, aspirin 81 mg p.o. b.i.d., midodrine 2.5 mg p.o. t.i.d., oxycodone 5-10 mg p.o. q.4 hours p.r.n., sennosides 17.2 mg p.o. at bedtime. Resume home meds as listed. Stop taking amlodipine and atenolol.
== END 2020-04-27 17:19 | disposition home or self-care (01) | DRG 470 ==
LOC: ASU 06:39 → 3E 10:54